=== PATIENT | female | born 1930 ===

== ENCOUNTER 2017-12-08 11:39 | Emergency (ER) | payer MEDICARE, BC ==
[2017-12-08 12:29] VITALS: BP 129/76
--- NOTE | 2017-12-08 14:18 | UC ---
Lower Extremity/Ankle HPI - HPI Summary HPI Summary: PATIENT FLEW HER FROM [place] 5 DAYS AGO---STATES SHE ALWAYS HAS PAIN IN HER LEGS FROM 'STASIS DEMATITIS OR PVD DEPEND WHICH DOCTOR YOU ASK' NOW HAS WORSEN PAIN IN HER CALF AND LOWER LEG - History of Current Complaint Chief Complaint: UCLowerExtremity Stated Complaint: L LEG PAIN Time Seen by Provider: 12/08/17 14:11 Hx Obtained From: Patient ?: No Onset/Duration: Worse Since - PAST 3 DAYS Pain Intensity: 7 Pain Scale Used: 0-10 Numeric Aggravating Factor(s): Standing, Ambulation Alleviating Factor(s): Nothing Able to Bear Weight: Yes - Allergies/Home Medications Allergies/Adverse Reactions: Allergies Allergy/AdvReac Type Severity Reaction Status Date / Time bacitracin Allergy Rash Verified 12/08/17 12:29 [From Neosporin ([id number])] neomycin Allergy Rash Verified 12/08/17 12:29 [From Neosporin ([id number])] polymyxin B Allergy Rash Verified 12/08/17 12:29 [From Neosporin ([id number])] Home Medications: Home Medications Docusate CAP* [Colace Cap*] 100 mg PO DAILY 12/08/17 [History Confirmed 12/08/17 ] Metoprolol Succinate XL TAB* [Toprol XL TAB*] 100 mg PO DAILY 12/08/17 [History Confirmed 12/08/17] Olmesartan/Hydrochlorothiazide [Benicar Hct 40-25 mg Tablet] 1 each PO 12/08/17 [History] Pantoprazole TAB (NF) [Protonix TAB (NF)] 40 mg PO DAILY 12/08/17 [History Confirmed 12/08/17] Pregabalin [Lyrica] 100 mg PO BID 12/08/17 [History Confirmed 12/08/17] Propylene Glycol/Peg 400/Pf [Systane Ultra 0.4-0.3% Eye Drp] 1 each OP 12/08/17 [History] Rivaroxaban TAB(*) [Xarelto 15 mg(*)] 15 mg PO DAILY 12/08/17 [History Confirmed 12/08/17] lamoTRIgine TAB(*) [LaMICtal TAB(*)] 100 mg PO BID 12/08/17 [History Confirmed 12/08/17] levETIRAcetam [Keppra-] 750 mg PO BID 12/08/17 [History Confirmed 12/08/17] PMH/Surg Hx/FS Hx/Imm Hx Previously Healthy: No - PVD Cardiovascular History: Hypertension, Pacemaker/ICD GI/ History: Gastroesophageal Reflux Cancer History: Breast Cancer - Surgical History Surgical History: Yes Surgery Procedure, Year, and Place: pacer, bilat mastectomy, choley, hysterectomy - Family History Known Family History: Positive: None, Unknown - Social History Occupation: Retired Lives: With Family Alcohol Use: Occasionally Substance Use Type: None Smoking Status (MU): Never Smoked Tobacco Review of Systems Constitutional: Negative Skin: Negative Eyes: Negative ENT: Negative Respiratory: Negative Cardiovascular: Negative Gastrointestinal: Negative Genitourinary: Negative Motor: Negative Neurovascular: Negative Musculoskeletal: Arthralgia - LEFT LOWER LEG, Myalgia - LEFT LOWER LEG Neurological: Negative Psychological: Negative Is Patient Immunocompromised?: No All Other Systems Reviewed And Are Negative: Yes Physical Exam Triage Information Reviewed: Yes Appearance: Well-Appearing, No Pain Distress, Well-Nourished Vital Signs: Initial Vital Signs Temp 98.2 F 12/08/17 12:19 Pulse 83 12/08/17 12:19 Resp 18 12/08/17 12:19 BP 129/76 12/08/17 12:19 Pulse Ox 98 12/08/17 12:19 Vital Signs Reviewed: Yes Eye Exam: Normal Eyes: Positive: Conjunctiva Clear ENT Exam: Normal ENT: Positive: Normal ENT inspection, Hearing grossly normal. Negative: Trismus , Muffled voice, Hoarse voice Dental Exam: Normal Neck exam: Normal Neck: Positive: Supple, Nontender, No Lymphadenopathy Respiratory Exam: Normal Respiratory: Positive: Chest non-tender, Lungs clear, Normal breath sounds, No respiratory distress, No accessory muscle use Cardiovascular Exam: Normal Cardiovascular: Positive: RRR, No Murmur, Pulses Normal, Brisk Capillary Refill Musculoskeletal Exam: Normal Musculoskeletal: Positive: Strength Intact, ROM Intact, No Edema - HAS ON COMPRESSION HOSE Neurological Exam: Normal Neurological: Positive: Alert, Muscle Tone Normal Psychological Exam: Normal Skin Exam: Normal Lower Extremity Course/Dx - Course Course Of Treatment: UNABLE TO EVALUATE FOR DVT AT URGENT CARE---WILL D/C PATIENT FROM HER FOR FURTHER EVALUATION AT EMERGENCY DEPARTMENT - Differential Dx/Diagnosis Provider Diagnoses: left calf pain Discharge - Sign-Out/Discharge Documenting (check all that apply): Patient Departure All imaging exams completed and their final reports reviewed: No Studies - Discharge Plan Condition: Fair Disposition: HOME-RECOMMEND TO ED Referrals: No Primary Care Phys,NOPCP [Primary Care Provider] - Additional Instructions: PLEASE GO DIRECTLY TO THE EMERGENCY DEPARTMENT FOR EVALUATION OF LEFT CALF PAIN - Billing Disposition and Condition Condition: FAIR Disposition: Home-Recommend to ED
== END 2017-12-08 14:20 | disposition home health service (06) ==
LOC: UCEAST 11:39
DX: M79.662 Pain in left lower leg (principal)
CPT/HCPCS: 99202; G0463

== ENCOUNTER 2017-12-08 14:41 | Emergency (ER) | payer MEDICARE, BC ==
[2017-12-08 18:23] LABS: Hematocrit 36 % (35-47); Hemoglobin 12.2 g/dl (12.0-16.0); Mean Corpuscular HGB Conc 34 g/dl (31-36); Mean Corpuscular Hemoglobin 31 pg (27-31); Mean Corpuscular Volume 93 fL (80-97); Mean Platelet Volume 7.9 um3 (7.4-10.4); Platelet Count 191 10^3/ul (150-450); Red Blood Count 3.88 10^6/ul (4.00-5.40); Red Cell Distribution Width 15 % (10.5-15); White Blood Count 9.5 10^3/ul (3.5-10.8)
--- NOTE | 2017-12-08 18:28 | ED ---
Lower Extremity - HPI Summary HPI Summary: 87-year-old female presents with left leg pain today. She has history of venous stasis. She did travel from [place] and will be traveling back on Sunday. She states she is here for pain medication. No fevers. She denies any chest pressures breath. She is on xarleto for A. fib. She has a pacemaker. She denies any injury. She states the pain is her entire calf Muscle. she believes the pain is due to venous stasis. she normally takes Tylenol for the pain but Tylenol is not helping. she denies any edema. she wear compression socks. - History of Current Complaint Chief Complaint: EDExtremityLower Stated Complaint: LT LEG PAIN Time Seen by Provider: 12/08/17 17:35 Pain Intensity: 7 - Allergies/Home Medications Allergies/Adverse Reactions: Allergies Allergy/AdvReac Type Severity Reaction Status Date / Time bacitracin Allergy Rash Verified 12/08/17 12:29 [From Neosporin ([id number])] neomycin Allergy Rash Verified 12/08/17 12:29 [From Neosporin ([id number])] polymyxin B Allergy Rash Verified 12/08/17 12:29 [From Neosporin ([id number])] PMH/Surg Hx/FS Hx/Imm Hx Endocrine/Hematology History: Reports: Hx Anticoagulant Therapy Denies: Hx Diabetes Cardiovascular History: Reports: Hx Hypertension - Cancer History Cancer Type, Location and Year: breast CA - Surgical History Surgery Procedure, Year, and Place: pacer, bilat mastectomy, choley, hysterectomy Infectious Disease History: No Infectious Disease History: Denies: Traveled Outside the [place] in Last 30 Days - Family History Known Family History: Positive: None, Unknown - Social History Alcohol Use: Occasionally Substance Use Type: Reports: None Smoking Status (MU): Never Smoked Tobacco Review of Systems Negative: Fever Negative: Chest Pain Negative: Shortness Of Breath Positive: Myalgia - left leg pain All Other Systems Reviewed And Are Negative: Yes Physical Exam Triage Information Reviewed: Yes Vital Signs On Initial Exam: Initial Vitals Temp Pulse Resp BP Pulse Ox 97.7 F 70 14 170/91 98 12/08/17 14:49 12/08/17 14:49 12/08/17 14:49 12/08/17 14:49 12/08/17 14:49 Vital Signs Reviewed: Yes Appearance: Positive: Well-Appearing Skin: Positive: Warm, Dry Head/Face: Positive: Normal Head/Face Inspection Eyes: Positive: Normal, Conjunctiva Clear ENT: Positive: Pharynx normal Respiratory/Lung Sounds: Positive: Clear to Auscultation, Breath Sounds Present Cardiovascular: Positive: Normal, RRR Musculoskeletal: Positive: Strength/ROM Intact - left leg, Other - good pulses, capillary refill<2secs Neurological: Positive: Normal Psychiatric: Positive: Normal Diagnostics - Vital Signs Vital Signs Temp Pulse Resp BP Pulse Ox 12/08/17 14:49 97.7 F 70 14 170/91 98 - Laboratory Result Diagrams: 12/08/17 18:13 12/08/17 18:13 Lab Statement: Any lab studies that have been ordered have been reviewed, and results considered in the medical decision making process. Lower Extremity Course/Dx - Course Course Of Treatment: 87-year-old female presents with left leg pain today. She has history of venous stasis. She did travel from [place] and will be traveling back on Sunday. She states she is here for pain medication. No fevers. She denies any chest pressures breath. She is on Zaroxolyn for A. fib. She has a pacemaker. She denies any injury. She states the pain is her entire calf Muscle. she believes the pain is due to venous stasis. she normally takes Tylenol for the pain but Tylenol is not helping. she denies any edema. she wear compression socks. on exam has venous status present. neurovascular intact. u/s no dvt. will give tramadol for pain. patient understand and agrees with plan. - Diagnoses Differential Diagnosis/HQI/PQRI: Positive: DVT, Fracture (Closed), Sprain Provider Diagnoses: Left leg pain Discharge - Sign-Out/Discharge Documenting (check all that apply): Patient Departure - Discharge Plan Condition: Good Disposition: HOME Prescriptions: traMADol TAB* [Ultram*] 50 mg PO Q12H PRN #8 tab MDD 2 PRN Reason: Pain Patient Education Materials: Leg Pain (ED) Referrals: No Primary Care Phys,NOPCP [Primary Care Provider] - Additional Instructions: Use compression socks Ice Elevate Take Tylenol for pain every 6 hours, use tramadol every 12 hours as needed for break through pain Follow up with primary within 5 days Return to ED if develop any new or worsening symptoms - Billing Disposition and Condition Condition: GOOD Disposition: Home
[2017-12-08 18:34] LABS: INR 1.02 (0.77-1.02)
--- NOTE | 2017-12-08 19:34 | RAD ---
EXAM: US Duplex Left Lower Extremity Veins CLINICAL HISTORY: 87 years old, female; Pain; Leg, lower; Left; Patient HX: Left calf pain TECHNIQUE: Real-time duplex ultrasound scan of the left lower extremity veins integrating B-mode two-dimensional vascular structure, Doppler spectral analysis, color flow Doppler imaging and compression. COMPARISON: No relevant prior studies available. FINDINGS: Deep veins: Normal. No DVT in the visualized common femoral, femoral, proximal deep femoral or popliteal veins. The veins demonstrate normal color flow, are normally compressible, with normal phasic flow and/or augmentation response. Superficial veins: Normal. No thrombus in the visualized great saphenous vein. Soft tissues: Normal. No popliteal cyst. IMPRESSION: Normal left lower extremity duplex venous ultrasound.
[2017-12-08 19:41] LABS: ABS Basophils 0 10^3/ul (0-0.2); ABS Eosinophils 0.1 10^3/ul (0-0.6); ABS Lymphocytes 5.3 10^3/ul (1.0-4.8); ABS Monocytes 0.4 10^3/ul (0-0.8); ABS Neutrophils 3.7 10^3/ul (1.5-7.7); ABS Nucleated RBC 0 10^3/ul; Eosinophil % 0.9 % (0-6); Lymphocyte % 55.3 % (25-47); Nucleated Red Blood Cells % 0.4
[2017-12-08 19:53] VITALS: BP 110/70
== END 2017-12-08 19:52 | disposition home or self-care (01) ==
LOC: ED 14:41
DX: M79.662 Pain in left lower leg (principal); I48.91 Unspecified atrial fibrillation; Z79.01 Long term (current) use of anticoagulants; Z95.0 Presence of cardiac pacemaker; Z88.8 Allergy status to other drugs, medicaments and biological substances
CPT/HCPCS: 36415; 80053; 85025; 85060; 85610; 85730; 99282